=== PATIENT | female | born 1980 | race Caucasian/White ===

== ENCOUNTER → 2017-01-17 | Outpatient (CLI) | payer MEDICAID | LOC: FIMAGING 12:40 | PROVIDERS: ATTEND Family Medicine | DX: D25.2 Subserosal leiomyoma of uterus (principal) ==

== ENCOUNTER 2018-08-08 23:32 | Emergency (ER) | payer MEDICAID ==
[2018-08-08 23:38] VITALS: BP 136/70
--- NOTE | 2018-08-08 23:56 | EDPHY ---
H & P Time Seen by Provider: 08/08/18 23:40 HPI/ROS: CHIEF COMPLAINT: Right hand pain HISTORY OF PRESENT ILLNESS: 37-year-old female complaining of acute right hand injury after she slipped and fell onto her right hand this evening. Denies proximal pain or injury. Denies head injury. Denies paresthesia. Denies break in skin such as puncture wound or laceration. PRIMARY CARE PROVIDER: REVIEW OF SYSTEMS: A ten point review of systems was performed and is negative with the exception of the items mentioned in the HPI PHYSICAL EXAM (Prior to examination, patient consented to physical exam, hands were washed and my usual and customary physical exam procedures followed) 1) GENERAL: Well-developed, well-nourished, alert and oriented. Appears to be in no acute distress. 2) HEAD: Normocephalic 3) HEENT: Pupils equal, round, reactive to light bilaterally. 4) LUNGS: Breathing comfortably. 5) MUSCULOSKELETAL: Tender to palpation distal 2nd 3rd 4th metacarpal. No deformity no angulation normal cascading of digit. Soft compartments. Normal coloration. 6) SKIN: Intact. 7) VASCULAR: pulses and cap refill present are brisk 8) NEUROLOGIC: Radial, ulnar, median nerve function intact with no deficits appreciated on exam DIFFERENTIAL DIAGNOSIS: in no particular order including but not limited to fracture, sprain, compartment syndrome Smoking Status: Current every day smoker Constitutional: Initial Vital Signs Temperature (C) 37.3 C 08/08/18 23:32 Heart Rate 99 08/08/18 23:32 Respiratory Rate 16 08/08/18 23:32 Blood Pressure 136/70 H 08/08/18 23:32 O2 Sat (%) 94 08/08/18 23:32 O2 Delivery Mode Room Air Allergies/Adverse Reactions: No Known Allergies Allergy (Verified 08/08/18 23:38) Home Medications: Medication Instructions Recorded Estrace 08/08/18 Paxil 08/08/18 Suboxone 12 mg-3 mg Sl Film 08/08/18 traZODone 08/08/18 MDM/Departure - MDM Procedures: Procedure: Splint Ortho Glass ulnar gutter splint was applied by ER survey cad technician. After application of the splint I returned and re-examined the patient. The splint was adequately immobilizing the joint and distal to the splint the patient's circulation and sensation were intact. Patient shows no signs of compartment syndrome. Was given orthopedic precautions. ED Course/Re-evaluation: Reviewed the imaging with the patient. She is neurovascularly intact with no evidence of open fracture. She has been splinted. She will need follow-up with Hand surgery and given this referral information. My usual and customary orthopedic precautions instructions provided. She feels comfortable being discharged. All questions and concerns addressed by myself. Care of patient under supervision of secondary supervising physician Dr Pereyra . - Depart Disposition: Home, Routine, Self-Care Clinical Impression: Finger fracture, right Qualifiers: Encounter type: initial encounter Finger: ring finger Fracture type: closed Phalanx: proximal Fracture alignment: displaced Qualified Code(s): S62.614A - Displaced fracture of proximal phalanx of right ring finger, initial encounter for closed fracture Condition: Good Instructions: Finger Fracture (ED) Additional Instructions: Return to the ER immediately if you experience discoloration, have worsening pain, numbness, tingling, or any other symptoms that concern you. If you received x-rays in the emergency department today, be advised, that ligamentous , tendon, muscular, and other non-bony injury cannot be fully ruled out. Try to keep your affected extremity elevated above the level of your chest, and keep cold packs on the affected area, for the next 48 hours. Referrals: Lalo Coelho MD [Medical Doctor] - 2-3 days, call for appt.
== END 2018-08-09 00:31 | disposition home or self-care (01) ==
DX: S62.614A Displaced fracture of proximal phalanx of right ring finger, initial encounter for closed fracture (principal); W22.8XXA Striking against or struck by other objects, initial encounter; F17.200 Nicotine dependence, unspecified, uncomplicated

== ENCOUNTER 2018-08-12 10:40 | Emergency (ER) | payer MEDICAID ==
[2018-08-12 10:47] VITALS: BP 135/87
--- NOTE | 2018-08-12 11:09 | EDPHY ---
H & P Time Seen by Provider: 08/12/18 11:05 HPI/ROS: Clinical Impression: Right hand pain Assessment/Plan: 37-year-old female presents to the emergency department 4 days after injuring the right hand. Patient tripped over a dog she was caring for and sustained a closed right 4th proximal phalanx fracture. She states her splint got wet and dirty and she presents to the ED today for repeat splint placement. She has orthopedic follow-up on Saturday. No clinical signs of compartment syndrome or neurovascular compromise. A new ulnar gutter splint was placed. Rice treatment reviewed, follow-up with Ortho as scheduled. Warning signs return to ED sooner alignment discharge. Differential Dx: Differential includes but not limited to acute neurovascular compromise, compartment syndrome ED Procedures: Procedure: Splint placement. A ulnar gutter splint splint was applied by technical training manager, supervised by myself. After application of the splint I returned and re-examined the patient. The splint was adequately immobilizing the joint and distal to the splint the patient's circulation and sensation was intact. ED Course: Chief Complaint: Right hand pain HPI: 37-year-old female presents to the emergency department with complaints of right hand pain. Patient was seen for pain recently, diagnosed with a 4th proximal phalanx fracture and is here for a new splint placement. She states her splint got dirty and wet and was uncomfortable. She apparently has a follow -up appointment on Saturday with Orthopedics. PMH: See chart Pertinent Past Surgical History: No prior orthopedic surgery REVIEW OF SYSTEMS: All other systems negative Constitutional: No fever, no chills Musculoskeletal: No deformity, + joint pain Skin: No rashes, color change or open wounds. Neurological: No sensory loss or weakness. PHYSICAL EXAM: General Appearance: Alert, oriented, appropriate for age, cooperative, NAD, well hydrated, non-toxic appearing, VSS, no hypoxia. Neurological: Alert and oriented x 3, normal sensation and strength of extremities Skin: Warm, dry, no rashes, no nodules on palpation. Musculoskeletal: Swelling and bruising noted to the dorsum of the right hand. Pain to palpation along the 4th proximal phalanx. No open wound. No clinical signs of compartment syndrome. Cap refill 2 sec, distal neurovascular exam intact MEDICAL DECISION MAKING: Patient was seen independently.Secondary supervising physician at time of evaluation was Dr. Monahan. Diagnosis: Closed Right 4th proximal phalanx fracture. New, requires workup Summary: See assessment and plan for summary of ED visit Review / Summarize previous medical records reviewed prior ED chart notes Patient Progress improved. Smoking Status: Current every day smoker Constitutional: Initial Vital Signs Temperature (C) 37.2 C 08/12/18 10:43 Heart Rate 70 08/12/18 10:43 Respiratory Rate 17 08/12/18 10:43 Blood Pressure 135/87 H 08/12/18 10:43 O2 Sat (%) 94 08/12/18 10:43 O2 Delivery Mode Room Air Allergies/Adverse Reactions: No Known Allergies Allergy (Verified 08/12/18 10:42) Home Medications: Medication Instructions Recorded Estrace 08/08/18 Paxil 08/08/18 Suboxone 12 mg-3 mg Sl Film 08/08/18 traZODone 08/08/18 MDM/Departure - Depart Disposition: Home, Routine, Self-Care Clinical Impression: Right hand pain Condition: Good Instructions: Finger Fracture (ED) Additional Instructions: DISCHARGE INSTRUCTIONS FROM YOUR DOCTOR Thank you for visiting our emergency department today. Please keep in mind that discharge from the emergency department does not mean that there is nothing wrong - it simply means that we have not identified an emergency condition that requires further evaluation or treatment in the hospital. You should always plan to follow up with primary care for re-evaluation of your condition in the next 2-3 days. If you have been referred to a specialist, please call as soon as possible (today or tomorrow) to schedule your follow up appointment at the appropriate time. [Follow-up with Orthopedics on Saturday as scheduled. Rest and elevate the affected extremity as much as possible. Ice the affected areas 20 min on, 20 min off for the next several days. Keep splint on until you see Ortho. Return to the ER for worsening pain, swelling, loss of sensation to her hand or fingers , fever greater than 100.4, or any other concerns ] People present with illnesses and injuries in different ways, and it is always possible that we have missed something. You may always return for re-evaluation if symptoms worsen or if they are not improving or if you develop new/different symptoms. Again, thank you for choosing our emergency department. We hope that you feel better. Referrals: Kanika Workman, [Primary Care Provider] - As per Instructions
== END 2018-08-12 11:36 | disposition home or self-care (01) ==
PROC: 2W3EX1Z Immobilization of Right Hand using Splint (ICD-10-PCS; principal; 2018-08-12)
DX: S62.614D Displaced fracture of proximal phalanx of right ring finger, subsequent encounter for fracture with routine healing (principal); Z46.89 Encounter for fitting and adjustment of other specified devices